=== PATIENT | male | born 1960 | race Caucasian/White ===

== ENCOUNTER 2023-11-27 11:14 | Emergency (ER) | payer BC, MEDICAID ==
[~2023-11-27] VITALS: Ht 160 cm; Wt 72.7 kg
[~2023-11-27 11:14] MED LIST: ASCO500T8; ATOR20TA2; FERR325T28; FOLI0.4T14; MULT-342 PO; OMEG1CAP54 PO; OSC500T PO
[2023-11-27 11:23] VITALS: TEMP 97.6
[2023-11-27] MEDS: acetaminophen 325mg tablet PO ONE (13:58)
[2023-11-27] MEDS: bacitracin 15gm ointment TP ONE (15:31)
[2023-11-27 17:16] VITALS: BP 146/81; PULSE 110; RESP 18; O2SAT 93
== END 2023-11-27 17:21 | disposition home or self-care (01) ==
LOC: ER 11:15
DX: S22.41XA Multiple fractures of ribs, right side, initial encounter for closed fracture (principal); M79.641 Pain in right hand; E78.00 Pure hypercholesterolemia, unspecified; Z79.899 Other long term (current) drug therapy; Y08.89XA Assault by other specified means, initial encounter; Y93.89 Activity, other specified; Y92.89 Other specified places as the place of occurrence of the external cause; Y99.8 Other external cause status
CPT/HCPCS: 29125; 70450; 71250; 73100; 73120; 99284; A6258; A6449